=== PATIENT | male | born 1970 | race Caucasian/White ===

== ENCOUNTER 2017-12-21 08:16 | Day surgery (SDC) | payer BC, OTHER ==
[2017-12-17 14:51] VITALS: BMI 26.8
[2017-12-21] MEDS ORDERED: MIDAZOLAM HCL 2 MG/2 ML SINGLE DOSE VIAL ONE (09:33)
[2017-12-21] MEDS ORDERED: BUPIVACAINE HCL/PF 2.5 MG/ML - 30 ML VIAL IJ ONE (09:51)
[2017-12-21] MEDS ORDERED: PROPOFOL 20 ML ONE ×2 (09:59)
[2017-12-21] MEDS ORDERED: SUCCINYLCHOLINE CHLORIDE 200 MG/10 ML VIAL ONE (09:59)
[2017-12-21] MEDS ORDERED: DEXAMETHASONE SOD PHOSPHATE 4 MG/1 ML VIAL ONE (10:04)
[2017-12-21] MEDS ORDERED: LIDOCAINE HCL/PF 2% SDV 5ML VIAL ONE (10:04)
[2017-12-21] MEDS ORDERED: ONDANSETRON 4 MG/2 ML VIAL ONE (10:04)
[2017-12-21] MEDS ORDERED: ceFAZolin SODIUM 1 GM VIAL ONE (10:11)
[2017-12-21] MEDS ORDERED: DESFLURANE GAS 240 ML BOTTLE IH ONE (10:27)
[2017-12-21] MEDS ORDERED: KETOROLAC TROMETHAMINE 30 MG/1 ML VIAL ONE (10:27)
[2017-12-21] MEDS ORDERED: oxyCODONE HCL 5 MG TABLET PO PRN (11:03)
[2017-12-21] MEDS ORDERED: ONDANSETRON 4 MG/2 ML VIAL IVPUSH PRN (11:03)
[2017-12-21] MEDS ORDERED: LACTATED RINGERS SOLUTION 1,000 ML IV SCH (11:15)
[2017-12-21 12:11] VITALS: TEMP 97.5
[2017-12-21] MEDS ORDERED: BUPIVACAINE HCL/PF 0.25% (2.5MG/ML) 10 ML VIAL IJ ONE (12:20)
[2017-12-21 12:43] VITALS: BP 136/79; PULSE 50
--- NOTE | 2017-12-21 14:18 | OP ---
DATE OF OPERATION: 12/21/2017 LOCATION: [facility]. SURGEON: Crescencio Vallejo MD [employer]ATE: GAIL Alejo PREOPERATIVE DIAGNOSES: 1. Right knee medial and lateral meniscal tear. 2. Right knee cartilage injury. 3. Right knee synovitis. POSTOPERATIVE DIAGNOSES: 1. Right knee medial and lateral meniscal tear. 2. Right knee cartilage injury. 3. Right knee synovitis. PROCEDURES: 1. Right knee arthroscopy with partial meniscectomy, medial and lateral meniscus; CPT code 30475 2. Right knee arthroscopy with chondroplasty; CPT code 17989 3. Right knee arthroscopy with synovectomy; CPT code 80400 FINDINGS: 1. Medial meniscus, leaa-cw-hqukikhqg-horn tear. 2. Lateral meniscus, posterior one-third tear. 3. Synovitis, patellofemoral medial, lateral and notch area. 4. Central grade 3 cartilage injury, central one-third, medial femoral condyle. 5. ACL and PCL intact. 6. Central grade 3 to 4 cartilage changes, lateral femoral condyle. 7. Multiple loose bodies. 8. Anterior grade 2 cartilage changes, lateral tibial plateau. 9. Minimal cartilage changes, patellofemoral joint. PROCEDURE: Informed consent was obtained. The patient came to the operating room, where the lower extremity was prepped and draped in a sterile fashion. A tourniquet was placed on the upper thigh, but not inflated. Using standard arthroscopic technique, a lateral incision and portal was made to allow for introduction of the camera into the suprapatellar bursa. This was then taken to the medial joint line, where under direct visualization, a medial incision and portal was made. Excessive synovium noted in the medial, lateral and patellofemoral and notch area was removed by an up-biter, shaver and Bovie cautery. This was found to bring in inflammatory tissue into the joint surface, a source of pain and dysfunction. Probing of the medial and lateral meniscus found tears, as described in the findings. These were removed with the up-biter and shaver and taken back to a stable rim. Grade 2 to 3 degenerative changes were treated with a chondroplasty, removing all flaking surfaces with low-setting Bovie along the periphery to prevent further flaking. Grade 4 changes, as noted, were treated with an abrasoplasty, creating a bleeding surface at the bone/cartilage interface. Aggressive debridement with shaver/mamta created bleeding surface. Microfracture also done when indicated in findings. All areas of the knee were once again re-examined. The knee was then drained and a single suture was placed in all portals. A sterile dressing was placed and the patient was transferred to the recovery room without complication. CRESCENCIO VALLEJO M.D. [id number]
--- NOTE | 2017-12-26 16:25 | PATH ---
Surgical Pathology Report Patient Name: MIRIAM DINERO Med. Rec. #: [id number] /Age/Gender: 1970 (Age: 47) / M Account: [id number] Location: [facility] AM[facility] Taken: 12/21/2017 Received: 12/21/2017 Reported: 12/26/2017 Physicians: Crescencio Herrera M.D. Specimen(s) Received RIGHT KNEE SHAVINGS Clinical History Right knee internal derangement Final Diagnosis KNEE RIGHT, ARTHROSCOPIC SHAVINGS: CARTILAGE AND FIBROSYNOVIAL TISSUE. Electronically Signed Ivelisse Coppola M.D. Gross Description Received in formalin, labeled "right knee shavings," is a 4.3 x 4.0 x 0.4 cm. aggregate of fonseca-yellow soft tissue fragments. A eligibility services representative portion is submitted in one cassette. 12/24/2017 saudi12/24/2017
== END 2017-12-21 12:44 | disposition home or self-care (01) ==
LOC: FASU 08:16
PROVIDERS: ATTEND Orthopaedic Surgery
PROC: 0SBC4ZZ Excision of Right Knee Joint, Percutaneous Endoscopic Approach (ICD-10-PCS; 2017-12-21)
PROC: 0SBC4ZZ Excision of Right Knee Joint, Percutaneous Endoscopic Approach (ICD-10-PCS; 2017-12-21)
PROC: 0SBC4ZZ Excision of Right Knee Joint, Percutaneous Endoscopic Approach (ICD-10-PCS; principal; 2017-12-21 10:26)
DX: S83.241A Other tear of medial meniscus, current injury, right knee, initial encounter (principal); S83.281A Other tear of lateral meniscus, current injury, right knee, initial encounter; S83.8X1A Sprain of other specified parts of right knee, initial encounter; M65.861 Other synovitis and tenosynovitis, right lower leg; X58.XXXA Exposure to other specified factors, initial encounter; Y93.9 Activity, unspecified; Y92.9 Unspecified place or not applicable
CPT/HCPCS: 88304-TC; 94760